=== PATIENT | female | born 1950 | race Two or more races ===

== ENCOUNTER 2020-06-19 14:19 | Inpatient (IN) | payer MEDICAID ==
[2020-06-19] MEDS ORDERED: IV NS 0.9% 1,000 ML BAG IV ONE (14:30)
[2020-06-19] MEDS ORDERED: METF-440 PO (16:10)
[2020-06-19] MEDS ORDERED: CLOP75TA15 PO (16:10)
[2020-06-19] MEDS ORDERED: AMLO10TA4 PO (16:10)
[2020-06-19] MEDS ORDERED: AMIT25TA9 PO (16:10)
[2020-06-19] MEDS ORDERED: FLUO20CA42 PO (16:10)
[2020-06-19] MEDS ORDERED: OMEP20TA5 PO (16:10)
[2020-06-19] MEDS ORDERED: ONDANSETRON HCL/PF 4 MG/2 ML VIAL IVP PRN (17:00)
[2020-06-19] MEDS ORDERED: TEMAZEPAM 15 MG CAPSULE PO PRN (17:00)
[2020-06-19] MEDS ORDERED: MAGNESIUM HYDROXIDE 30 ML UDC PO PRN (17:00)
[2020-06-19] MEDS ORDERED: DEXTROSE 50%-WATER 50 ML DISP.SYRIN IV PRN (17:00)
[2020-06-19] MEDS ORDERED: ACETAMINOPHEN 325 MG TABLET PO PRN (17:00)
[2020-06-19] MEDS ORDERED: MAG HYDROX/AL HYDROX/SIMETH 30 ML UDC PO PRN (17:00)
[2020-06-19] MEDS ORDERED: AMLODIPINE BESYLATE 5 MG TABLET PO ONE (17:30)
[2020-06-19] MEDS: BLOOD SUGAR DIAGNOSTIC 1 EACH STRIP IN SCH ×2 (17:30→21:37)
[2020-06-19] MEDS ORDERED: AMLODIPINE BESYLATE 5 MG TABLET ONE (17:37)
[2020-06-19] MEDS: HYDROCODONE/APAP 5/325MG TABLET PO PRN (20:39)
[2020-06-19] MEDS: ENOXAPARIN SODIUM 40 MG/0.4 ML DISP.SYRIN SQ SCH (21:06)
[2020-06-19] MEDS: CYCLOBENZAPRINE 10 MG TABLET PO PRN (21:24)
[2020-06-19] MEDS: INSULIN REGULAR, HUMAN 100 UNIT/ML 3 ML VIAL SQ PRN (21:34)
[2020-06-19] MEDS ORDERED: AMITRIPTYLINE HCL 25 MG TABLET PO PRN (22:00)
[2020-06-20] MEDS: BLOOD SUGAR DIAGNOSTIC 1 EACH STRIP IN SCH ×4 (06:33→21:50)
[2020-06-20] MEDS: INSULIN REGULAR, HUMAN 100 UNIT/ML 3 ML VIAL SQ PRN ×3 (06:39→21:51)
[2020-06-20] MEDS ORDERED: ASPIRIN 81 MG TAB.CHEW PO SCH (09:00)
[2020-06-20] MEDS: FLUOXETINE HCL 20 MG CAPSULE PO SCH (09:09)
[2020-06-20] MEDS: AMLODIPINE BESYLATE 10 MG TABLET PO SCH (09:09)
[2020-06-20] MEDS: CLOPIDOGREL BISULFATE 75 MG TABLET PO SCH (09:09)
[2020-06-20] MEDS: METOPROLOL TARTRATE 50 MG TABLET PO SCH ×2 (09:18→21:16)
[2020-06-20] MEDS: ATORVASTATIN 10 MG TABLET PO SCH (09:18)
[2020-06-20] MEDS: ASPIRIN 81 MG TAB.CHEW PO SCH (09:18)
[2020-06-20] MEDS: MORPHINE SULFATE INJ 2 MG/ML DISP.SYRIN IV PRN ×2 (09:19→18:42)
[2020-06-20] MEDS: PANTOPRAZOLE 40 MG TABLET.DR PO SCH (09:20)
[2020-06-20] MEDS ORDERED: IV NS 0.9% 500 ML IV PRN (09:30)
[2020-06-20] MEDS ORDERED: METOPROLOL TARTRATE INJ 5 MG/5 ML AMPUL IVP PRN (09:30)
[2020-06-20] MEDS ORDERED: IOHEXOL-350 100 ML VIAL IV ONE (10:40)
[2020-06-20] MEDS ORDERED: IV NS 0.9% 250 ML IV ONE (10:41)
[2020-06-20] MEDS: NITROGLYCERIN 0.4 MG/TAB BOTTLE SL ONE ×2 (10:51→10:56)
[2020-06-20] MEDS: Magnesium 1GM/D5W 100ML PREMIX 100 ML IV SCH ×2 (12:33→13:56)
[2020-06-20] MEDS: HYDROCODONE/APAP 5/325MG TABLET PO PRN ×2 (12:56→21:33)
[2020-06-20] MEDS: CYCLOBENZAPRINE 10 MG TABLET PO PRN (18:42)
[2020-06-20] MEDS: ENOXAPARIN SODIUM 40 MG/0.4 ML DISP.SYRIN SQ SCH (21:18)
[2020-06-21] MEDS: INSULIN REGULAR, HUMAN 100 UNIT/ML 3 ML VIAL SQ PRN ×2 (06:39→21:40)
[2020-06-21] MEDS: PANTOPRAZOLE 40 MG TABLET.DR PO SCH (06:39)
[2020-06-21] MEDS: BLOOD SUGAR DIAGNOSTIC 1 EACH STRIP IN SCH ×4 (06:39→21:41)
[2020-06-21] MEDS: FLUOXETINE HCL 20 MG CAPSULE PO SCH (08:12)
[2020-06-21] MEDS: ATORVASTATIN 10 MG TABLET PO SCH (08:12)
[2020-06-21] MEDS: ASPIRIN 81 MG TAB.CHEW PO SCH (08:12)
[2020-06-21] MEDS: CYCLOBENZAPRINE 10 MG TABLET PO PRN (08:12)
[2020-06-21] MEDS: CLOPIDOGREL BISULFATE 75 MG TABLET PO SCH (08:12)
[2020-06-21] MEDS: AMLODIPINE BESYLATE 10 MG TABLET PO SCH (08:13)
[2020-06-21] MEDS: METOPROLOL TARTRATE 50 MG TABLET PO SCH ×2 (08:17→20:55)
[2020-06-21] MEDS: HYDROCODONE/APAP 5/325MG TABLET PO PRN (15:03)
[2020-06-21] MEDS ORDERED: IOHEXOL-350 100 ML VIAL IV ONE (16:27)
[2020-06-21] MEDS ORDERED: IV NS 0.9% 250 ML IV ONE (16:27)
[2020-06-21] MEDS: ENOXAPARIN SODIUM 40 MG/0.4 ML DISP.SYRIN SQ SCH (21:33)
[2020-06-22] MEDS: PANTOPRAZOLE 40 MG TABLET.DR PO SCH (06:42)
[2020-06-22] MEDS: BLOOD SUGAR DIAGNOSTIC 1 EACH STRIP IN SCH ×2 (06:53→12:24)
[2020-06-22] MEDS: CLOPIDOGREL BISULFATE 75 MG TABLET PO SCH (09:36)
[2020-06-22] MEDS: ASPIRIN 81 MG TAB.CHEW PO SCH (09:36)
[2020-06-22] MEDS: ATORVASTATIN 10 MG TABLET PO SCH (09:36)
[2020-06-22] MEDS: FLUOXETINE HCL 20 MG CAPSULE PO SCH (09:36)
[2020-06-22] MEDS: AMLODIPINE BESYLATE 10 MG TABLET PO SCH (09:37)
[2020-06-22] MEDS: METOPROLOL TARTRATE 50 MG TABLET PO SCH (09:38)
[2020-06-22] MEDS: INSULIN REGULAR, HUMAN 100 UNIT/ML 3 ML VIAL SQ PRN (12:24)
== END 2020-06-22 16:03 | disposition home or self-care (01) | DRG 203 ==
DX: M94.0 Chondrocostal junction syndrome [Tietze] (principal); I25.10 Atherosclerotic heart disease of native coronary artery without angina pectoris; I10 Essential (primary) hypertension; E86.0 Dehydration; M43.6 Torticollis; E66.9 Obesity, unspecified; E78.5 Hyperlipidemia, unspecified; Z68.32 Body mass index [BMI] 32.0-32.9, adult; E11.9 Type 2 diabetes mellitus without complications; N17.9 Acute kidney failure, unspecified; Z79.899 Other long term (current) drug therapy; Z79.02 Long term (current) use of antithrombotics/antiplatelets; Z79.84 Long term (current) use of oral hypoglycemic drugs; I48.91 Unspecified atrial fibrillation; Z95.0 Presence of cardiac pacemaker; F32.9 Major depressive disorder, single episode, unspecified; G47.00 Insomnia, unspecified; E83.42 Hypomagnesemia; I67.2 Cerebral atherosclerosis